=== PATIENT | female | born 1955 | race Asian ===

== ENCOUNTER → 2020-05-27 | Outpatient (CLI) | payer OTHER ==
[~2020-05-27] VITALS: Ht 154.9 cm; Wt 54.4 kg
[~2020-05-27] MED LIST: SINCALIDE 1.09 MCG in IV NORMAL SALINE 50ML 30 ML IV ONE
--- NOTE | 2020-05-27 10:00 | RAD ---
NM HEPATOBILIARY SCAN W/PHARM History:Abdominal pain. Comparison: None. Technique: 5.5 mCi technetium 99m Choletec was administered intravenously and spot views were obtain ed on the gamma camera for a Nuclear Medicine hepatobiliary scan. 1.09 mcg of CCK drip was administered over 30 minutes and the region of interest was drawn around the gallbladder and gallbladder ejection fraction was calculated. Findings: There is rapid uptake of activity from the blood pool and concentration in the liver. Activity seen i n the gallbladder at 10 minutes and small bowel at 45 minutes. There is a rapid response of the gallbladder to CCK and the gallbladder ejection fraction is 91% whic h is normal. Impression: 1. Normal hepatobiliary scan. Normal gallbladder ejection fraction. Electronically signed by: Matheus Espino DO (05/27/2020 9:58 AM) [id number]
== END ==
LOC: NM 07:26
DX: K21.9 Gastro-esophageal reflux disease without esophagitis (principal); K81.1 Chronic cholecystitis; R11.0 Nausea; R10.9 Unspecified abdominal pain; R19.7 Diarrhea, unspecified; G89.29 Other chronic pain
CPT/HCPCS: 78227; A9537; J2805